=== PATIENT | female | born 1985 | race Caucasian/White ===

== ENCOUNTER 2019-03-03 08:10 | Outpatient (CLI) | payer BC ==
--- NOTE | 2019-03-03 09:16 | MRI ---
Exam: MRI cervical spine without contrast HISTORY: Cervical radiculopathy. Chronic neck pain radiating to both shoulders. Left arm numbness.. COMPARISON: None FINDINGS: Appropriate T1 marrow signal intensity of the cervical vertebra. Cervical spine vertebral body heigh t is maintained. No fracture. No significant STIR hyperintensity to suggest vertebral body edema or ligamentous injury. Visualized brain parenchyma, cervical medullary junction, cervical cord and the upper thoracic cord h ave a normal size and signal intensity Bilateral palatine tonsillar fullness. C2-C3: No significant central canal stenosis or neural foraminal narrowing. C3-C4: No significant central canal stenosis or neural foraminal narrowing. C4-C5: No significant central canal stenosis or neural foraminal narrowing. C5-C6: No significant central canal stenosis or neural foraminal narrowing. C6-C7: Minimal central disc protrusion with minimal central canal stenosis. No significant mass effec t upon the cervical cord. Bilaterally, neural foramina are patent C7-T1: No significant central canal stenosis or neural foraminal narrowing. IMPRESSION: 1. No significant central canal stenosis or neural foraminal narrowing. 2. Bilateral palatine tonsillar fullness. Correlate clinically. CODE T
== END 2019-03-03 08:11 | disposition home or self-care (01) ==
LOC: BICMRI 08:10
PROVIDERS: ATTEND Anesthesiology Pain Medicine
DX: M54.12 Radiculopathy, cervical region (principal); J35.9 Chronic disease of tonsils and adenoids, unspecified
CPT/HCPCS: 72141

== ENCOUNTER 2019-06-01 09:25 | Outpatient (CLI) | payer BC ==
--- NOTE | 2019-06-01 11:02 | RAD ---
XR Cerv Sp Ap Lat STANDARD History: Neck pain. M54.2 Comparison: Cervical spine MRI March 03, 2019 Findings: No acute fracture or malalignment. No listhesis. Subtle increased translation with flexion- extension at C4/C5 and C5/C6. Impression: Subtle increased translation with flexion-extension at C4/C5 and C5/C6.
== END 2019-06-01 09:26 | disposition home or self-care (01) ==
LOC: TBSIIMAG 09:25
PROVIDERS: ATTEND Neurological Surgery
DX: M54.2 Cervicalgia (principal)
CPT/HCPCS: 72040